=== PATIENT | female | born 2000 | race Caucasian/White ===

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

== ENCOUNTER 2019-04-16 21:06 | Emergency (ER) | payer OTHER ==
[~2019-04-16] VITALS: Ht 127 cm; Wt 93.0 kg
[2019-04-16 21:13] VITALS: BP 155/91
== END 2019-04-16 21:25 | disposition home or self-care (01) ==
LOC: M.ERS 21:06
DX: J06.9 Acute upper respiratory infection, unspecified (principal); J45.901 Unspecified asthma with (acute) exacerbation; Z91.041 Radiographic dye allergy status